=== PATIENT | female | born 1980 | race Caucasian/White ===

== ENCOUNTER → 2016-06-03 | Outpatient (CLI) | payer BC ==
[2016-06-03 18:15] LABS: URINE APPEARANCE CLOUDY (CLEAR); URINE BILIRUBIN NEG (NEG); URINE COLOR YELLOW; URINE EPITHELIAL CELL AUTO >30 /lpf (0-5); URINE NITRITE POS (NEG); URINE SPECIFIC GRAVITY 1.023 (1.000-1.030); UROBILINOGEN NEG (NEG)
[2016-06-03 18:26] LABS: MANUAL MICROSCOPIC REQUIRED? NO; REVIEW REQ? NO
== END | disposition home or self-care (01) ==
LOC: C.LABSPEC 17:29
PROVIDERS: ATTEND Nurse Practitioner Adult Health
DX: R39.9 Unspecified symptoms and signs involving the genitourinary system (principal)

== ENCOUNTER → 2016-06-17 | Outpatient (CLI) | payer BC ==
[2016-06-17 10:52] LABS: BASO % 0.6 %; BASO ABS # 0.07 K/uL (0-0.2); COMPLETE YES; HEMATOCRIT 38.4 % (37-47); IG% 0.2 %; LYMPH % 34.8 %; LYMPH ABS # 3.91 K/uL (1.2-3.4); MEAN CORPUSCULAR HEMOGLOBIN 29.6 pg (25-34); MEAN CORPUSCULAR HGB CONC 32.6 g/dl (32-36); MEAN PLATELET VOLUME 10.1 fL (7.4-10.4); MONO % 5.2 %; NEUT % 58.2 %; PLATELET COUNT 253 K/uL (130-400); RED BLOOD COUNT 4.22 M/uL (4.2-5.4); WHITE BLOOD COUNT 11.25 K/uL (4.8-10.8)
[2016-06-17 11:23] LABS: ALT/SGPT 15 U/L (12-78); AST/SGOT 10 U/L (15-37); BLOOD UREA NITROGEN 14 mg/dl (7-18); BUN/CREATININE RATIO 15.5 (10-20); CALCIUM 8.5 mg/dl (8.5-10.1); CARBON DIOXIDE 26 mmol/L (21-32); CHLORIDE 109 mmol/L (98-107); GLUCOSE 99 mg/dl (70-99); POTASSIUM 3.8 mmol/L (3.5-5.1); SODIUM 142 mmol/L (136-145)
[2016-06-17 11:24] LABS: ESTIMATED AVERAGE GLUCOSE 105 mg/dl; HA1C FLAG Normal (Normal)
[2016-06-17 11:34] LABS: ALB/GLOB RATIO 1.1 (0.9-2); ALKALINE PHOSPHATASE 39 U/L (45-117)
== END | disposition home or self-care (01) ==
LOC: C.LABBC 08:33
PROVIDERS: ATTEND Nurse Practitioner Adult Health
DX: E03.9 Hypothyroidism, unspecified (principal)

== ENCOUNTER → 2016-08-25 | Outpatient (CLI) | payer BC ==
[2016-08-25 18:42] LABS: URINE APPEARANCE CLEAR (CLEAR); URINE BILIRUBIN NEG (NEG); URINE COLOR YELLOW; URINE EPITHELIAL CELL AUTO >30 /lpf (0-5); URINE NITRITE NEG (NEG); UROBILINOGEN NEG (NEG)
[2016-08-25 18:49] LABS: MANUAL MICROSCOPIC REQUIRED? NO; REVIEW REQ? NO
== END | disposition home or self-care (01) ==
LOC: C.LABSPEC 17:33
PROVIDERS: ATTEND Family Medicine
DX: R39.9 Unspecified symptoms and signs involving the genitourinary system (principal)

== ENCOUNTER → 2016-08-26 | Outpatient (CLI) | payer BC | LOC: C.PAPS 11:22 | PROVIDERS: ATTEND Obstetrics & Gynecology | DX: Z01.419 Encounter for gynecological examination (general) (routine) without abnormal findings (principal) ==

== ENCOUNTER → 2016-08-26 | Outpatient (CLI) | payer BC | END | disposition home or self-care (01) | LOC: C.LAB1850 09:44 | PROVIDERS: ATTEND Nurse Practitioner Adult Health | DX: E03.9 Hypothyroidism, unspecified (principal) ==

== ENCOUNTER → 2017-01-20 | Outpatient (CLI) | payer BC | END | disposition home or self-care (01) | LOC: C.LABBC 09:40 | PROVIDERS: ATTEND Nurse Practitioner Adult Health | DX: E03.9 Hypothyroidism, unspecified (principal) ==

== ENCOUNTER → 2017-04-30 | Outpatient (CLI) | payer OTHER | END | disposition home or self-care (01) | LOC: C.LABSPEC 10:55 | PROVIDERS: ATTEND Nurse Practitioner Family | DX: N39.0 Urinary tract infection, site not specified (principal) ==

== ENCOUNTER → 2017-10-18 | Outpatient (CLI) | payer OTHER | END | disposition home or self-care (01) | LOC: C.LAB1850 08:03 | PROVIDERS: ATTEND Family Medicine | DX: E03.9 Hypothyroidism, unspecified (principal) ==

== ENCOUNTER 2019-06-22 07:38 | Inpatient (IN) ==
[2019-06-22] MEDS ORDERED: PENICILLIN G POTASSIUM 6 MU in DEXTROSE 5% 250 ML IV STA (07:58)
[2019-06-22] MEDS ORDERED: OXYTOCIN 30 UNITS/500 ML BAG IV PRN ×2 (08:00)
[2019-06-22 08:32] LABS: Hematocrit (blood only) 41.5 % (37-47); Hemoglobin 13.7 g/dL (12.0-16.0); Mean Corpuscular Hemoglobin 28.2 pg (25-34); Mean Corpuscular Volume 85.4 fL (80-100); Mean Platelet Volume 11.5 fL (7.4-10.4); Platelet Count 205 K/uL (130-400); RDW Coefficient of Variation 15.7 % (11.5-14.5); RDW Standard Deviation 49.2 fL (36.4-46.3); Red Blood Count 4.86 M/uL (4.2-5.4); White Blood Count 17.75 K/uL (4.8-10.8)
[2019-06-22] MEDS: LACTATED RINGER'S 1,000 ML IV PRN ×2 (08:34→19:12)
--- NOTE | 2019-06-22 10:44 | History & Physical Report ---
Date of Service June 22, 2019 Assessment & Plan (1) Advanced maternal age (AMA) in : 38yo at 41.2 weeks GA. IOL for post dates 1. Fetus: Cat 1 2: Labor: s/p mccarty. Will start pitocin and AROM when able 3. GBS positive: PCN 4. Hypothyroid: Continue home meds 5. Asthma: Home meds PRN (2) Group B streptococcal carriage complicating : (3) Encounter for supervision in primigravida, antepartum: (4) Delaney's thyroiditis: (5) Hypothyroidism: (6) Asthma: History of Present Illness Primary Care Provider: Terese Yanez MD 38yo at 41.2 weeks GA. Present for late term IOL. complicated by GBS positive, AMA, Rh negative, asthma and hypothyroid. Mccarty placed last night and still in place. Removed prior to exam Allergies Allergy/AdvReac Type Severity Reaction Status Date / Time No Known Drug Allergies Allergy Verified 06/21/19 08:41 Home Medications Home Medications Medication Instructions Recorded Confirmed Type levothyroxine 150 mcg PO DAILY 06/22/19 06/22/19 History vit-iron fum-folic ac 1 tab PO DAILY 06/22/19 06/22/19 History [ Vitamin] Patient History Social History (Updated 11/03/18 @ 10:57 by Vesna Nguyen) Preferred Language: Romansh Communication Ability: Effective Visual Impairment: No Limitations Hearing Ability: Normal Beliefs That Will Affect Care: None marital status: marital status details: Sai Schaefer (39) [phone] Current Living Situation: Spouse Current Living Situation Comment: 2 cats- spouse changing cat litter. current occupational status: employed current occupation: Senior Sales Operations Analyst @ [employer] Other Information That Helps Us Care for You: No Feels Safe at Home: Yes Safety Concerns: Feels Safe At This Time Smoking Status: Never smoker Second Hand Exposure: No ; Hx Alcohol Use: No Hx Substance Use: No Childhood Exposure to Second-Hand Smoke: No Dental Care, Regularly: Yes Physical Activity Frequency: Does not Exercise Physical Exam Constitutional: WD/WN, vitals as above Gastrointestinal (Abdomen): Inspection/Auscultation: abdomen normal to inspection Percussion/Palpation: abdomen soft; abdomen nontender, no guarding and abdomen not rigid Psychiatric: A+Ox3, euthymic affect Genitourinary: normal external appearance OB Exam Abdomen: + vertex Manual OB Exam: + cervical dilation 4 cm, + cervical effacement 20% and + station high OB Exam Monitor Tracing: + external FHT monitor used, + external uterine monitor used, + category I and + normal FHT variability; no early decelerations present, no late decelerations present and no variable decelerations Results & Data Vital Signs (Past 12 Hours) Vital Signs Temp Pulse Resp BP 06/22/19 09:30 113 H 129/85 06/22/19 08:38 37.0 C 20 06/22/19 07:53 127 H 142/81 H Coding Level of Care Code None Diagnoses Advanced maternal age (AMA) in Group B streptococcal carriage complicating O99.820 Encounter for supervision in primigravida, antepartum Z34.00 Delaney's thyroiditis E06.3 Hypothyroidism E03.9 Asthma J45.909
[2019-06-22] MEDS: PENICILLIN G POTASSIUM 3 MU in DEXTROSE 5% 100 ML IV PRN ×3 (12:49→20:10)
--- NOTE | 2019-06-22 15:25 | Labor Progress Brief Note ---
Date of Service June 22, 2019 Subjective Reason For Note: Routine Evaluation Current Pain Level(1-10): 3 Assessment & Plan (1) Advanced maternal age (AMA) in : 38yo at 41.2 weeks GA. IOL for post dates 1. Fetus: Cat 1 2: Labor: s/p mccarty. Pitocin, AROM 3. GBS positive: PCN 4. Hypothyroid: Continue home meds 5. Asthma: Home meds PRN (2) Group B streptococcal carriage complicating : (3) Encounter for supervision in primigravida, antepartum: (4) Delaney's thyroiditis: (5) Hypothyroidism: (6) Asthma: Physical Exam Genitourinary: OB Exam Abdomen: + vertex Manual OB Exam: + cervical dilation 5 cm, + cervical effacement 60%, + station -2 and + amniotic fluid bloody OB Exam Monitor Tracing: + external FHT monitor used, + external uterine monitor used, + category I and + normal FHT variability; no early decelerations present, no late decelerations present and no variable decelerations Results & Data Vital Signs (Past 12 Hours) Vital Signs Temp Pulse Pulse Resp BP BP 06/22/19 14:59 80 125/65 06/22/19 14:58 36.8 C 80 18 125/65 06/22/19 13:51 82 132/69 06/22/19 12:51 36.8 C 85 20 123/75 06/22/19 12:17 18 06/22/19 11:42 82 128/77 06/22/19 10:44 109 H 125/74 06/22/19 09:30 113 H 129/85 06/22/19 08:38 37.0 C 20 06/22/19 07:53 127 H 142/81 H Coding Level of Care Code None Diagnoses Advanced maternal age (AMA) in Group B streptococcal carriage complicating O99.820 Encounter for supervision in primigravida, antepartum Z34.00 Delaney's thyroiditis E06.3 Hypothyroidism E03.9 Asthma J45.909
--- NOTE | 2019-06-22 19:17 | Labor Progress Brief Note ---
Date of Service June 22, 2019 Subjective Reason For Note: Routine Evaluation Current Pain Level(1-10): 7 Assessment & Plan (1) Advanced maternal age (AMA) in : 38yo at 41.2 weeks GA. IOL for post dates 1. Fetus: Cat 1 2: Labor: s/p mccarty. Pitocin, AROM 3. GBS positive: PCN 4. Hypothyroid: Continue home meds 5. Asthma: Home meds PRN (2) Group B streptococcal carriage complicating : (3) Encounter for supervision in primigravida, antepartum: (4) Delaney's thyroiditis: (5) Hypothyroidism: (6) Asthma: Physical Exam Genitourinary: OB Exam Abdomen: + vertex Manual OB Exam: + cervical dilation 5 cm, + cervical effacement 70%, + station -2 and + amniotic fluid bloody OB Exam Monitor Tracing: + external FHT monitor used, + external uterine monitor used, + category I, + normal FHT variability and + early decelerations present; no late decelerations present and no variable decelerations Results & Data Vital Signs (Past 12 Hours) Vital Signs Temp Pulse Pulse Resp BP BP 06/22/19 19:09 86 137/77 06/22/19 16:55 36.6 C 06/22/19 14:59 80 125/65 06/22/19 14:58 36.8 C 80 18 125/65 06/22/19 13:51 82 132/69 06/22/19 12:51 36.8 C 85 20 123/75 06/22/19 12:17 18 06/22/19 11:42 82 128/77 06/22/19 10:44 109 H 125/74 06/22/19 09:30 113 H 129/85 06/22/19 08:38 37.0 C 20 06/22/19 07:53 127 H 142/81 H Coding Level of Care Code None Diagnoses Advanced maternal age (AMA) in Group B streptococcal carriage complicating O99.820 Encounter for supervision in primigravida, antepartum Z34.00 Delaney's thyroiditis E06.3 Hypothyroidism E03.9 Asthma J45.909
[2019-06-22] MEDS ORDERED: BUPIVACAINE 0.25% 30 ML VIAL ONE (19:22)
[2019-06-22] MEDS ORDERED: ePHEDrine sulfate 50 MG/ML AMP ONE (19:22)
[2019-06-22] MEDS ORDERED: fentaNYL citrate 100 MCG/2 ML VIAL ONE (19:23)
[2019-06-22] MEDS ORDERED: fentaNYL 2MCG/ML ROPIV 1.25MG/ML 100 ML BAG EPI ONE (19:23)
[2019-06-22] MEDS ORDERED: NALOXONE HCL 1 MG in SODIUM CHLORIDE 0.9% 1000ML 1,000 ML IV PRN (19:56)
[2019-06-22] MEDS ORDERED: NALOXONE HCL 0.4 MG/1 ML VIAL/CARP IV PRN (19:56)
[2019-06-22] MEDS ORDERED: NALBUPHINE HCL INJ 10 MG/ML AMP IV PRN (19:56)
[2019-06-22] MEDS ORDERED: ONDANSETRON INJ 2 MG/ML 2 ML VIAL IV PRN (19:56)
[2019-06-22] MEDS ORDERED: DiphenhydrAMINE HCL 50 MG/ML VIAL IV PRN (19:56)
[2019-06-22] MEDS ORDERED: fentaNYL 2MCG/ML ROPIV 1.25MG/ML 100 ML BAG EPI PRN (19:56)
[2019-06-22] MEDS ORDERED: ePHEDrine sulfate 50 MG/ML AMP IV PRN (19:56)
--- NOTE | 2019-06-22 19:59 | Anesthesiology Consultation ---
Date of Service June 22, 2019 Assessment & Plan (1) Hypothyroidism: (2) Asthma: (3) Encounter for pre-operative examination: Chart Review Chart Review: Patient NOT seen in Pre Admission Testing and Acceptable Risk for Labor Epidural Consults Requested none History Height/Weight Height: 5 ft 8 in Weight: 101.605 kg Allergies Allergy/AdvReac Type Severity Reaction Status Date / Time No Known Drug Allergies Allergy Verified 06/21/19 08:41 Medications Home Medications Medication Instructions Recorded Confirmed Last Taken levothyroxine 150 mcg PO DAILY 06/22/19 06/22/19 06/22/19 06:30 vit-iron fum-folic ac 1 tab PO DAILY 06/22/19 06/22/19 06/22/19 06:30 [ Vitamin] Active Medications Generic Name Dose Route Start Last Admin Trade Name Freq PRN Reason Stop Dose Admin Lactated Ringer's 1,000 mls @ 125 mls/hr 06/22/19 08:00 06/22/19 19:12 Lr IV 06/24/19 07:59 125 mls/hr .Q8H PRN Administration L&D Protocol Protocol Penicillin G Potassium 3 mu/ 106 mls @ 100 mls/hr 06/22/19 12:00 06/22/19 20:10 Dextrose IV 07/02/19 11:59 100 mls/hr Q4H PRN Administration Give until delivery Oxytocin 30 units in 500 mls @ 12 mls/hr 06/22/19 08:00 06/22/19 14:55 Pitocin IV 06/24/19 07:59 0.72 units/hr .Q24H PRN 12 mls/hr Labor Induction/Augmentation Titration Protocol 0.72 UNITS/HR Past Medical History Medical History (Updated 06/22/19 @ 20:22 by Fausto Martino MD) Asthma (Inactive) Hypothyroidism (Inactive) Varicella Yeast infection Exercise / Class Metabolic Activity II 4-5 Yardwork/Stairs/Walk up hill Past Family History Family History Mother Breast cancer Aunt Ovarian cancer Denies family history of Prostate cancer Myocardial infarction Colorectal cancer Past Surgical History Surgical History History of dental surgery Past Anesthesia History No Hx of Anesthesia Complications and No Family Hx of Anesthesia Complications History of PONV No Hx of PONV and No Hx of Motion Sickness Social History Smoking Status: Never smoker Do You Dip or Chew Tobacco: No Hx Alcohol Use: No Hx Substance Use: No substance use type: does not use Physical Exam Vital Signs Last Vital Signs Temp 36.8 C 06/22/19 19:10 Pulse 94 H 06/22/19 19:54 Resp 20 06/22/19 19:10 BP 137/77 06/22/19 19:09 Pulse Ox 98 06/22/19 19:54 Testing Laboratory Results 06/22/19 08:14
[2019-06-23] MEDS: PENICILLIN G POTASSIUM 3 MU in DEXTROSE 5% 100 ML IV PRN ×2 (00:10→04:10)
[2019-06-23] MEDS ORDERED: Nursing to Pharmacy Communication ONE (02:22)
[2019-06-23] MEDS ORDERED: SUPERCREAM 0.870% 15 GM JAR EXT PRN (05:59)
[2019-06-23] MEDS ORDERED: DIPHTHERIA/TETANUS/PERTUSSIS 0.5 ML SYR/VIAL IM ONE (05:59)
[2019-06-23] MEDS ORDERED: OXYTOCIN 30 UNITS/500 ML BAG IV PRN (05:59)
[2019-06-23] MEDS ORDERED: ACETAMINOPHEN 325 MG TAB PO PRN (05:59)
[2019-06-23] MEDS ORDERED: BENZOCAINE 20% AER SPR 82.5 GM CAN EXT PRN (05:59)
[2019-06-23] MEDS ORDERED: HYDROCORTISONE ACETATE 25 MG SUPP PR PRN (05:59)
[2019-06-23] MEDS: LEVOTHYROXINE SODIUM 150 MCG TABLET PO SCH (06:29)
[2019-06-23] MEDS: IBUPROFEN 600 MG TAB PO PRN ×2 (06:32→23:17)
[2019-06-23] MEDS ORDERED: OXYCODONE HCL IR 5 MG TAB (IMMEDIATE RELEASE) PO PRN ×2 (07:16)
[2019-06-23] MEDS ORDERED: OXYCODONE/ACETAMINOPHEN 5mg/325mg TAB PO ONE (07:19)
[2019-06-23] MEDS ORDERED: LIDOCAINE 2% JELLY 5 ML TUBE ONE (07:52)
--- NOTE | 2019-06-23 07:52 | Delivery Summary ---
DATE OF OPERATION: 06/23/2019 PROCEDURE: Normal spontaneous vaginal delivery with right labial laceration repair. SURGEON: Zack Roy MD. PREOPERATIVE DIAGNOSES: 1. Single intrauterine at 41 weeks 2 days gestational age. 2. Group B Streptococcus positive. 3. Hypothyroid. 4. Asthma. POSTOPERATIVE DIAGNOSES: 1. Single intrauterine at 41 weeks 2 days gestational age. 2. Group B Streptococcus positive. 3. Hypothyroid. 4. Asthma. 5. Status post delivery. ESTIMATED BLOOD LOSS: 300 mL. DRAINS: Straight cath at the completion of the case. URINE OUTPUT: 300 mL via straight cath. COMPLICATIONS: None. FINDINGS: Viable female with weight pending and Apgars of 7 and 9 at one and five minutes respectively. INDICATIONS: Lucina is a 38-year-old , admitted at 41 weeks 2 days gestational age for late term induction of labor. At initial evaluation, the patient was noted to have a Ortiz in place, which was removed and was noted to be 4 cm dilated, 25% effaced, negative 3-4 station. The patient was cephalic by Derian's and sutures. Oxytocin was started per regular protocol. After the patient was noted to have some cervical change with good contraction pattern, she underwent artificial rupture of membranes for clear fluid. She later received an epidural for anesthesia and progressed slowly in labor to complete-complete +2 station. At that point, we began to push and pushed for approximately slightly over half hour to achieve delivery. DESCRIPTION OF PROCEDURE: The patient progressed to 10 cm dilated, 100% effaced, +2 station, pushed over intact perineum with epidural anesthesia and delivered a viable female with weight and Apgars as noted above. Head of the delivered in CURTIS position, restituted to right transverse. No nuchal cord was noted. Body and shoulders quickly followed. was not noted to be vigorous on delivery, and with some stimulation, was not able to achieve a spontaneous cry and activity, and the cord was double clamped and cut, and the was taken to the waiting nursery staff. Cord segment and cord blood was obtained. Attention was then turned to deliver of the placenta, which was delivered intact, 3-vessel cord, gentle cord traction after approximately 24 minutes. On inspection of perineum, vagina, and cervix, there was noted to be a right labial laceration, which was repaired with 3-0 Vicryl in 3 interrupted stitches. Needle, sponge and instrument counts were correct at the completion of the case with mother and stable in the immediate post-delivery period. I attest to the content of the Intraoperative Record and any orders documented therein. Any exception s are noted below.
[2019-06-23] MEDS: PRENATAL VITAMIN 1 TAB PO SCH (08:36)
[2019-06-23] MEDS: FERROUS SULFATE 325 MG TAB PO SCH (08:36)
[2019-06-23] MEDS: LACTATED RINGER'S 1,000 ML IV PRN ×2 (08:47→16:58)
[2019-06-23] MEDS ORDERED: fentaNYL citrate 100 MCG/2 ML VIAL ONE ×3 (08:48→11:17)
[2019-06-23] MEDS ORDERED: BUPIVACAINE 0.25% 30 ML VIAL ONE ×2 (08:48→11:17)
[2019-06-23 09:02] LABS: Hematocrit (blood only) 34.4 % (37-47); Hemoglobin 11.5 g/dL (12.0-16.0)
[2019-06-23] MEDS: DOCUSATE SODIUM 100 MG CAP PO SCH ×2 (09:07→20:52)
--- NOTE | 2019-06-23 09:07 | Anesthesiology Progress Note ---
Date of Service Pt had and reportedly developed vaginal hematoma. Has epidural cateheter in place. Pt c/o pain and Dr. Pedroza asked whether epidural analgesia could be u sed. Pt seen, chart reviewed. Discussed with pt who agreed. I concurred and administered bupiv 0.25% 10cc + fentanyl 100mcg via epidural. VSS after injection and pt reported significant relief. Will follow. June 23, 2019 Physical Exam Vital Signs: Last Vital Signs Temp 36.9 C 06/23/19 06:50 Pulse 116 H 06/23/19 08:59 Resp 18 06/23/19 06:50 BP 132/75 06/23/19 08:59 Pulse Ox 98 06/23/19 05:59 Results & Data Medications Administered Acetaminophen (Tylenol) 650 mg PO Q6H PRN PRN Reason: Pain/TYSON/Fever Stop: 07/23/19 05:58 Last Admin: 06/23/19 06:44 Dose: 650 mg Documented by: [id number] Benzocaine (Dermoplast Pain Relieving [place]) 1 appln EXT PRN PRN PRN Reason: Perineal Discomfort Stop: 07/23/19 05:58 Last Admin: 06/23/19 06:45 Dose: 82.5 appln Documented by: [id number] Ferrous Sulfate (Feosol) 325 mg PO DAILY@08 [facility] Stop: 07/23/19 07:59 Last Admin: 06/23/19 08:36 Dose: Not Given Documented by: [id number] Lactated Ringer's (Lr) 1,000 mls @ 125 mls/hr IV .Q8H PRN; Protocol PRN Reason: L&D Protocol Stop: 06/24/19 07:59 Last Admin: 06/23/19 08:47 Dose: 125 mls/hr Documented by: [id number] Infusion: 06/23/19 03:12 Dose: 125 mls/hr Documented by: [id number] Admin: 06/22/19 19:12 Dose: 125 mls/hr Documented by: [id number] Infusion: 06/22/19 17:41 Dose: 125 mls/hr Documented by: [id number] Infusion: 06/22/19 17:25 Dose: 125 mls/hr Documented by: [id number] Infusion: 06/22/19 16:18 Dose: 0 mls/hr Documented by: [id number] Infusion: 06/22/19 14:55 Dose: 125 mls/hr Documented by: [id number] Admin: 06/22/19 08:34 Dose: 125 mls/hr Documented by: [id number] Ibuprofen (Motrin) 600 mg PO Q4H PRN PRN Reason: Pain/TYSON/Cramping/Fever Stop: 07/23/19 05:58 Last Admin: 06/23/19 06:32 Dose: 600 mg Documented by: [id number] Levothyroxine Sodium (Synthroid) 150 mcg PO DAILYBB [facility] Stop: 07/23/19 06:29 Last Admin: 06/23/19 06:29 Dose: 150 mcg Documented by: [id number] Prenat Multivit/[place]/Iron/Folic Ac ( Vitamin) 1 tab PO DAILY@08 [facility] Stop: 07/23/19 07:59 Last Admin: 06/23/19 08:36 Dose: Not Given Documented by: [id number]
--- NOTE | 2019-06-23 09:24 | Obstetrical Progress Note ---
Date of Service June 23, 2019 Assessment & Plan (1) Hematoma of vagina during delivery: -Stat H&H performed showing a hemoglobin and hematocrit of 11 and 34, down from a hemoglobin of 13 on admission -Blood pressure is stable, patient is tachycardic -Feel that most of the patient's discomfort is probably secondary to the packing as opposed to active bleeding. -P.o. pain medication has been given without relief -Discussed with anesthesia, epidural catheter is still in place -We will re-dose the epidural at this time for pain control -Continue to monitor the patient hemodynamically -All questions answered of the patient Subjective Asked to evaluate the patient for pain control by nursing. 38-year-old G1 now P1 status post vaginal delivery. Patient developed apparent vaginal wall hematoma treated with vaginal packing. The patient states that the packing is causing a great deal of pressure and pain. Minimal bleeding from the vagina with the packing in place. Ortiz catheter previously inserted draining clear urine. Physical Exam Genitourinary Pelvic examination deferred with packing in place Results & Data Vital Signs (Past 12 Hours) Vital Signs Temp Pulse Resp BP Pulse Ox 06/23/19 09:10 115 H 139/65 06/23/19 09:07 113 H 142/59 H 06/23/19 09:04 96 H 143/67 H 06/23/19 09:01 112 H 132/69 06/23/19 08:59 116 H 132/75 06/23/19 08:52 115 H 136/63 06/23/19 08:50 99 H 133/68 06/23/19 08:35 111 H 145/64 H 06/23/19 08:20 121 H 136/60 06/23/19 08:05 115 H 133/69 06/23/19 07:50 127 H 122/55 L 06/23/19 07:36 125 H 130/65 06/23/19 07:20 134 H 159/75 H 06/23/19 06:50 98.4 F 118 H 18 149/75 H 06/23/19 06:36 113 H 167/91 H 06/23/19 06:20 111 H 164/84 H 06/23/19 06:05 122 H 144/70 H 06/23/19 05:59 124 H 98 06/23/19 05:54 123 H 97 06/23/19 05:52 115 H 92 06/23/19 05:50 98.2 F 117 H 18 171/81 H 06/23/19 05:49 115 H 96 06/23/19 05:44 117 H 96 06/23/19 05:39 125 H 96 06/23/19 05:35 126 H 147/85 H 06/23/19 05:34 121 H 96 06/23/19 05:29 123 H 97 06/23/19 05:24 123 H 96 06/23/19 05:20 127 H 133/67 06/23/19 05:19 141 H 96 06/23/19 05:14 157 H 96 06/23/19 05:09 149 H 96 06/23/19 05:07 134 H 87 L 06/23/19 05:04 144 H 97 06/23/19 05:00 168 H 89 L 06/23/19 04:59 133 H 95 06/23/19 04:55 158 H 81 L 06/23/19 04:54 149 H 96 06/23/19 04:50 144 H 176/93 H 06/23/19 04:49 123 H 84 L 06/23/19 04:44 159 H 96 06/23/19 04:43 127 H 88 L 06/23/19 04:39 130 H 95 06/23/19 04:38 114 H 92 06/23/19 04:34 113 H 97 06/23/19 04:29 108 H 97 06/23/19 04:24 108 H 97 06/23/19 04:21 106 H 159/81 H 06/23/19 04:19 112 H 97 06/23/19 04:15 100.0 F H 18 06/23/19 04:14 109 H 96 06/23/19 04:09 107 H 96 06/23/19 04:06 108 H 144/72 H 06/23/19 04:05 113 H 93 06/23/19 04:04 115 H 97 06/23/19 03:59 118 H 96 06/23/19 03:54 109 H 97 06/23/19 03:50 110 H 141/93 H 06/23/19 03:49 113 H 96 06/23/19 03:44 110 H 97 06/23/19 03:39 108 H 96 06/23/19 03:36 109 H 129/63 06/23/19 03:34 115 H 97 06/23/19 03:29 114 H 95 06/23/19 03:27 115 H 93 06/23/19 03:24 112 H 97 06/23/19 03:21 109 H 127/64 06/23/19 03:19 125 H 95 06/23/19 03:14 109 H 96 06/23/19 03:09 112 H 96 06/23/19 03:06 104 H 130/65 06/23/19 03:04 106 H 96 06/23/19 02:59 106 H 95 06/23/19 02:54 105 H 96 06/23/19 02:51 107 H 130/60 06/23/19 02:49 113 H 96 06/23/19 02:44 105 H 97 06/23/19 02:39 107 H 95 06/23/19 02:35 120 H 127/60 06/23/19 02:34 108 H 97 06/23/19 02:29 112 H 97 06/23/19 02:24 113 H 98 06/23/19 02:21 113 H 134/66 06/23/19 02:19 117 H 96 06/23/19 02:14 117 H 96 06/23/19 02:09 122 H 98 06/23/19 02:07 98.4 F 20 06/23/19 02:05 117 H 170/74 H 06/23/19 02:04 124 H 95 06/23/19 01:59 114 H 96 06/23/19 01:54 122 H 98 06/23/19 01:52 130 H 178/77 H 06/23/19 01:49 116 H 96 06/23/19 01:44 119 H 96 06/23/19 01:39 119 H 97 06/23/19 01:35 107 H 171/119 H 06/23/19 01:34 108 H 97 06/23/19 01:29 107 H 96 06/23/19 01:27 116 H 94 06/23/19 01:24 141 H 97 06/23/19 01:19 121 H 98 06/23/19 01:14 116 H 98 06/23/19 01:10 114 H 92 06/23/19 01:09 107 H 97 06/23/19 01:06 122 H 161/102 H 06/23/19 01:04 112 H 97 06/23/19 00:59 103 H 97 06/23/19 00:54 105 H 97 06/23/19 00:52 106 H 142/83 H 06/23/19 00:49 110 H 98 06/23/19 00:44 105 H 96 06/23/19 00:39 101 H 98 06/23/19 00:37 98 H 133/82 06/23/19 00:34 100 H 98 06/23/19 00:29 98 H 97 06/23/19 00:24 107 H 97 06/23/19 00:21 114 H 122/89 06/23/19 00:19 115 H 96 06/23/19 00:14 123 H 99 06/23/19 00:09 123 H 98 06/23/19 00:06 108 H 135/75 06/23/19 00:04 111 H 99 06/22/19 23:59 108 H 97 06/22/19 23:54 104 H 99 06/22/19 23:51 105 H 132/64 06/22/19 23:49 105 H 97 06/22/19 23:44 106 H 98 06/22/19 23:39 112 H 98 06/22/19 23:35 93 H 133/63 06/22/19 23:34 101 H 98 06/22/19 23:29 99 H 98 06/22/19 23:24 102 H 98 06/22/19 23:20 99 H 132/59 L 06/22/19 23:19 99 H 97 06/22/19 23:14 105 H 98 06/22/19 23:09 98 H 97 06/22/19 23:06 97 H 127/59 L 06/22/19 23:04 100 H 97 06/22/19 22:59 98 H 97 06/22/19 22:54 97 H 97 06/22/19 22:51 96 H 125/58 L 06/22/19 22:49 97 H 99 06/22/19 22:44 96 H 98 06/22/19 22:39 101 H 99 06/22/19 22:35 95 H 127/60 06/22/19 22:34 96 H 98 06/22/19 22:29 91 H 98 06/22/19 22:24 93 H 99 06/22/19 22:20 93 H 122/59 L 06/22/19 22:19 93 H 99 06/22/19 22:15 98.2 F 16 06/22/19 22:14 94 H 98 06/22/19 22:09 92 H 99 06/22/19 22:05 89 127/60 06/22/19 22:04 95 H 98 06/22/19 21:59 90 98 06/22/19 21:54 91 H 98 06/22/19 21:52 86 145/74 H 06/22/19 21:49 84 98 06/22/19 21:44 91 H 99 06/22/19 21:39 93 H 96 06/22/19 21:37 93 H 130/62 06/22/19 21:34 99 H 97 06/22/19 21:33 92 H 94 06/22/19 21:29 95 H 96 06/22/19 21:24 97 H 97 06/22/19 21:21 93 H 129/63
[2019-06-23] MEDS ORDERED: ePHEDrine sulfate 50 MG/ML AMP ONE (11:16)
[2019-06-23] MEDS ORDERED: fentaNYL 2MCG/ML ROPIV 1.25MG/ML 100 ML BAG EPI ONE (11:17)
[2019-06-23] MEDS ORDERED: DiphenhydrAMINE HCL 50 MG/ML VIAL IV PRN (11:32)
[2019-06-23] MEDS ORDERED: NALBUPHINE HCL INJ 10 MG/ML AMP IV PRN (11:32)
[2019-06-23] MEDS ORDERED: NALOXONE HCL 0.4 MG/1 ML VIAL/CARP IV PRN (11:32)
[2019-06-23] MEDS ORDERED: NALOXONE HCL 1 MG in SODIUM CHLORIDE 0.9% 1000ML 1,000 ML IV PRN (11:32)
[2019-06-23] MEDS ORDERED: ePHEDrine sulfate 50 MG/ML AMP IV PRN (11:32)
--- NOTE | 2019-06-23 11:32 | Anesthesiology Progress Note ---
Date of Service Dosed epidural twice this morning which was effective for c/o pain related to vaginal hematoma/packing. Dr. Pedroza requested epidural infusion to manage pain until packing is removed, likely tomorrow. VSS and no signs of active bleeding presently. Discussed with pt and agreed to provide epidural infusion for pain management. Will follow. June 23, 2019 Physical Exam Vital Signs: Last Vital Signs Temp 37.2 C 06/23/19 07:20 Pulse 98 H 06/23/19 11:02 Resp 28 H 06/23/19 07:20 BP 153/84 H 06/23/19 11:02 Pulse Ox 98 06/23/19 05:59 Results & Data Medications Administered Acetaminophen (Tylenol) 650 mg PO Q6H PRN PRN Reason: Pain/TYSON/Fever Stop: 07/23/19 05:58 Last Admin: 06/23/19 06:44 Dose: 650 mg Documented by: [id number] Benzocaine (Dermoplast Pain Relieving [place]) 1 appln EXT PRN PRN PRN Reason: Perineal Discomfort Stop: 07/23/19 05:58 Last Admin: 06/23/19 06:45 Dose: 82.5 appln Documented by: [id number] Docusate Sodium (Colace) 100 mg PO DAILY@, [facility] Stop: 07/23/19 07:59 Last Admin: 06/23/19 09:07 Dose: Not Given Documented by: [id number] Ferrous Sulfate (Feosol) 325 mg PO DAILY@08 [facility] Stop: 07/23/19 07:59 Last Admin: 06/23/19 08:36 Dose: Not Given Documented by: [id number] Lactated Ringer's (Lr) 1,000 mls @ 125 mls/hr IV .Q8H PRN; Protocol PRN Reason: L&D Protocol Stop: 06/24/19 07:59 Last Admin: 06/23/19 08:47 Dose: 125 mls/hr Documented by: [id number] Infusion: 06/23/19 03:12 Dose: 125 mls/hr Documented by: [id number] Admin: 06/22/19 19:12 Dose: 125 mls/hr Documented by: [id number] Infusion: 06/22/19 17:41 Dose: 125 mls/hr Documented by: [id number] Infusion: 06/22/19 17:25 Dose: 125 mls/hr Documented by: [id number] Infusion: 06/22/19 16:18 Dose: 0 mls/hr Documented by: [id number] Infusion: 06/22/19 14:55 Dose: 125 mls/hr Documented by: [id number] Admin: 06/22/19 08:34 Dose: 125 mls/hr Documented by: [id number] Ibuprofen (Motrin) 600 mg PO Q4H PRN PRN Reason: Pain/TYSON/Cramping/Fever Stop: 07/23/19 05:58 Last Admin: 06/23/19 06:32 Dose: 600 mg Documented by: [id number] Levothyroxine Sodium (Synthroid) 150 mcg PO DAILYBB [facility] Stop: 07/23/19 06:29 Last Admin: 06/23/19 06:29 Dose: 150 mcg Documented by: [id number] Prenat Multivit/[place]/Iron/Folic Ac ( Vitamin) 1 tab PO DAILY@08 [facility] Stop: 07/23/19 07:59 Last Admin: 06/23/19 08:36 Dose: Not Given Documented by: [id number]
[2019-06-23 12:10] LABS: Hematocrit (blood only) 32.6 % (37-47); Hemoglobin 10.9 g/dL (12.0-16.0)
[2019-06-23] MEDS: fentaNYL 2MCG/ML ROPIV 1.25MG/ML 100 ML BAG EPI PRN (20:56)
[2019-06-24] MEDS: LACTATED RINGER'S 1,000 ML IV PRN (00:41)
[2019-06-24] MEDS: IBUPROFEN 600 MG TAB PO PRN ×2 (05:52→15:51)
[2019-06-24] MEDS: fentaNYL 2MCG/ML ROPIV 1.25MG/ML 100 ML BAG EPI PRN (05:53)
[2019-06-24] MEDS: LEVOTHYROXINE SODIUM 150 MCG TABLET PO SCH (06:10)
[2019-06-24 06:34] LABS: Hematocrit (blood only) 27.4 % (37-47); Hemoglobin 8.9 g/dL (12.0-16.0); Mean Corpuscular Hemoglobin 28.3 pg (25-34); Mean Corpuscular Hgb Conc 32.5 g/dL (32-36); Mean Corpuscular Volume 87.3 fL (80-100); Mean Platelet Volume 10.3 fL (7.4-10.4); Platelet Count 158 K/uL (130-400); RDW Coefficient of Variation 16.3 % (11.5-14.5); RDW Standard Deviation 51.8 fL (36.4-46.3); Red Blood Count 3.14 M/uL (4.2-5.4)
--- NOTE | 2019-06-24 08:03 | Obstetrical Progress Note ---
Date of Service June 24, 2019 Assessment & Plan (1) Hematoma of vagina during delivery: - packing removed - epidural d/c'd - H/H down, vitals stable - will ambulate and monitor clinical response - recheck H/H in AM Subjective Ambulation: limited ambulation Voiding: mccarty catheter in place Diet Tolerance:: regular diet Comfortable, but epidural still running Physical Exam Constitutional WD/WN, vitals as above Gastrointestinal (Abdomen) Fundus firm below umbilicus Musculoskeletal No deep calf tenderness Genitourinary Packing removed, saturated, single digit, small hematoma Results & Data Vital Signs (Past 12 Hours) Vital Signs Temp Pulse Resp BP Pulse Ox Pulse Ox 06/24/19 04:00 97.9 F 96 H 18 118/66 96 96 06/23/19 23:47 98.8 F 89 18 116/70 97 97
[2019-06-24] MEDS: FERROUS SULFATE 325 MG TAB PO SCH (08:37)
[2019-06-24] MEDS: PRENATAL VITAMIN 1 TAB PO SCH (08:37)
[2019-06-24] MEDS: DOCUSATE SODIUM 100 MG CAP PO SCH ×2 (08:37→20:37)
--- NOTE | 2019-06-24 09:14 | Anesthesiology Progress Note ---
Date of Service June 24, 2019 Anesthesia Post Procedure Vital Signs Vital Signs: Temp Pulse Pulse Resp BP BP Pulse Ox 06/24/19 07:00 36.6 C 94 H 16 118/64 98 06/24/19 04:00 36.6 C 96 H 18 118/66 96 06/23/19 23:47 37.1 C 89 18 116/70 97 06/23/19 19:16 36.8 C 93 H 16 106/65 96 06/23/19 18:05 36.6 C 107 H 18 116/62 97 06/23/19 17:17 36.7 C 88 20 107/50 L 97 06/23/19 16:00 36.8 C 88 16 123/68 99 06/23/19 13:01 96 H 117/61 98 06/23/19 12:56 91 H 109/57 L 97 06/23/19 12:51 97 H 109/59 L 99 06/23/19 12:46 90 108/57 L 98 06/23/19 12:41 91 H 108/55 L 99 06/23/19 12:36 90 115/55 L 98 06/23/19 12:31 93 H 121/56 L 99 06/23/19 12:28 98 H 133/58 L 06/23/19 12:27 101 H 89/6 L 06/23/19 12:26 101 H 98 06/23/19 12:21 94 H 117/63 98 06/23/19 12:16 103 H 111/57 L 99 06/23/19 12:12 104 H 130/74 06/23/19 12:11 105 H 98 06/23/19 12:06 91 H 107/53 L 97 06/23/19 12:01 91 H 122/59 L 98 06/23/19 11:56 101 H 139/73 98 06/23/19 11:51 99 H 138/75 98 06/23/19 11:46 101 H 141/72 H 98 06/23/19 11:41 103 H 141/69 H 98 06/23/19 11:36 110 H 126/80 98 06/23/19 11:33 108 H 118/79 06/23/19 11:31 106 H 98 06/23/19 11:30 36.9 C 20 06/23/19 11:26 122 H 112/83 99 06/23/19 11:02 98 H 153/84 H 06/23/19 10:59 87 109/59 L 06/23/19 10:56 87 107/51 L 06/23/19 10:53 90 103/51 L 06/23/19 10:50 88 101/52 L 06/23/19 10:47 90 113/56 L 06/23/19 10:44 90 107/52 L 06/23/19 10:41 90 106/52 L 06/23/19 10:38 89 110/55 L 06/23/19 10:37 96 H 117/60 06/23/19 10:32 98 H 117/62 06/23/19 09:56 102 H 134/62 06/23/19 09:41 114 H 132/60 06/23/19 09:26 108 H 134/62 Pulse Ox 06/24/19 07:00 06/24/19 04:00 96 06/23/19 23:47 97 06/23/19 19:16 06/23/19 18:05 06/23/19 17:17 06/23/19 16:00 06/23/19 13:01 06/23/19 12:56 06/23/19 12:51 06/23/19 12:46 06/23/19 12:41 06/23/19 12:36 06/23/19 12:31 06/23/19 12:28 06/23/19 12:27 06/23/19 12:26 06/23/19 12:21 06/23/19 12:16 06/23/19 12:12 06/23/19 12:11 06/23/19 12:06 06/23/19 12:01 06/23/19 11:56 06/23/19 11:51 06/23/19 11:46 06/23/19 11:41 06/23/19 11:36 06/23/19 11:33 06/23/19 11:31 06/23/19 11:30 06/23/19 11:26 06/23/19 11:02 06/23/19 10:59 06/23/19 10:56 06/23/19 10:53 06/23/19 10:50 06/23/19 10:47 06/23/19 10:44 06/23/19 10:41 06/23/19 10:38 06/23/19 10:37 06/23/19 10:32 06/23/19 09:56 06/23/19 09:41 06/23/19 09:26 Pain Intensity Lower Abdomen: Pain Intensity: 0 Notes Mental Status: alert / awake / arousable Pain: adequately controlled Airway Patency, RR, SpO2: stable & adequate BP & HR: stable & adequate Hydration State: stable & adequate Neuraxial Anesthesia: sensory block resolved and see Notes below (epidural pulled; catheter tip intact;) Anesthetic Complications: no major complications apparent and Pt Satisfied with anesthetic care
[2019-06-24] MEDS ORDERED: bisacodyL 5 MG TABEC PO SCH (20:00)
[2019-06-25] MEDS: LEVOTHYROXINE SODIUM 150 MCG TABLET PO SCH (05:47)
[2019-06-25 06:28] LABS: Hematocrit (blood only) 27.5 % (37-47); Hemoglobin 9.1 g/dL (12.0-16.0)
[2019-06-25] MEDS ORDERED: bisacodyL 10 MG SUPP PR PRN (07:00)
--- NOTE | 2019-06-25 08:39 | Obstetrical Progress Note ---
Date of Service June 25, 2019 Assessment & Plan (1) Hematoma of vagina during delivery: Minimal bleeding. Minimal pain. Home Subjective Ambulation: ambulating normally Voiding: no voiding problems Passing Gas:: Yes Diet Tolerance:: regular diet Lochia:: Small Feeding Type:: breast feeding Current Pain Level(1-10): 1 Physical Exam Constitutional WD/WN, vitals as above Genitourinary normal external appearance Results & Data Vital Signs (Past 12 Hours) Vital Signs Temp Pulse Resp BP Pulse Ox 06/24/19 23:10 99.0 F 92 H 20 118/76 97
[2019-06-25] MEDS: PRENATAL VITAMIN 1 TAB PO SCH (08:44)
[2019-06-25] MEDS: FERROUS SULFATE 325 MG TAB PO SCH (08:44)
[2019-06-25] MEDS: IBUPROFEN 600 MG TAB PO PRN (08:45)
[2019-06-25] MEDS: DOCUSATE SODIUM 100 MG CAP PO SCH (08:45)
== END 2019-06-25 13:20 | disposition home or self-care (01) | DRG 806 ==
LOC: 4S1 07:38 → 4S2 06-23 13:18